=== PATIENT | female | born 1970 | race Two or more races ===

== ENCOUNTER 2024-09-25 16:53 | Emergency (ER) | payer OTHER, SELFPAY ==
[2024-09-25 17:07] VITALS: BP 149/89; PULSE 83; RESP 19; TEMP 36.6; O2SAT 100; BMI 27.6
--- NOTE | 2024-09-25 17:14 | XR_ITS ---
Examination: CT abdomen and pelvis without contrast. Coronal 3-D reconstructions. Sagittal 2-D reconstructions. Date and time of exam:September 25, 2024 1818 hours INDICATIONS: Abdominal pain constipation beginning 2 weeks ago CTDI: vol (mGy): 9.14. DLP: (mGycm): 462. Technique: Axial images of the abdomen have been obtained, 3 mm slice thickness Intravenous contrast material has not been administered. Low dose protocols were performed. One or more of the following dose reduction techniques were used; automated exposure control, adjustment of the mA and/or KV according to patient size, use of iterative reconstruction technique. Findings: No liver or splenic lesions. Absent gallbladder. Normal pancreas. No renal or ureteral calculi, no hydronephrosis Aorta normal size Large amounts of stool throughout the entire colon Inflammatory change involving the descending colon Appendix does not appear inflamed Marked enlargement of the body and fundus of the uterus Urinary bladder intact Moderate osteopenia IMPRESSION: Normal appendix Large amounts of stool throughout the entire colon Nonspecific colitis pattern involving the descending colon, differential would include ulcerative colitis, Crohn's disease, recommend colonoscopy follow-up Marked abnormal enlargement of the uterus, recommend pelvic sonography follow-up
--- NOTE | 2024-09-25 17:14 | PD.EDRME ---
Rapid Medical Screening Exam RME Arrival date/time: 09/25/24 16:53 53-year-old female presents to the emergency department today for complaints of nausea vomiting abdominal pain as well as constipation Chief Complaint: Abdominal Pain Vital signs: Vital Signs Temperature 97.8 F 09/25/24 17:07 Pulse Rate 83 09/25/24 17:07 Respiratory Rate 19 09/25/24 17:07 Blood Pressure 149/89 H 09/25/24 17:07 Pulse Oximetry (%) 100 09/25/24 17:07 Oxygen Delivery Method Room Air 09/25/24 17:07
[2024-09-25 17:50] LABS: Basophils # (Auto) 0.1 Thou/mm3 (0.0-0.2); Basophils % (Auto) 1 % (0-2.5); Eosinophils # (Auto) 0.0 Thou/mm3 (0.0-0.5); Eosinophils % (Auto) 0 % (0-10); Hematocrit 42.2 % (36.0-46.0); Hemoglobin 14.1 g/dL (12.0-16.0); Immature Granulocytes Auto 0.04 Thou/mm3 (0.00-0.00); Lymphocytes # (Auto) 1.1 Thou/mm3 (1.0-4.8); Lymphocytes % (Auto) 7 % (10-50); Mean Corpuscular HGB Conc 33.4 g/dl (31.0-37.0); Mean Corpuscular Hemoglobin 29.6 pg (25.0-35.0); Mean Corpuscular Volume 89 fL (80-100); Monocytes # (Auto) 1.1 Thou/mm3 (0.0-0.8); Monocytes % (Auto) 7 % (0-12); Neutrophils # (Auto) 13.0 Thou/mm3 (1.8-7.7); Neutrophils % (Auto) 85 % (37-80); Nucleated Red Blood Cell # 0.00 Thou/mm3 (0.00-0.00); Nucleated Red Blood Cell % 0 /100 WBC (0); Platelet Count 313 Thou/mm3 (140-440); RDW Standard Deviation 41.6 fL (36.4-46.3); Red Blood Count 4.77 Miln/mm3 (4.00-5.20); White Blood Count 15.3 Thou/mm3 (3.6-11.0)
[2024-09-25] MEDS: ONDANSETRON ODT 4 MG TABRAP PO (18:09)
[2024-09-25 18:31] LABS: Alanine Aminotransferase 12 U/L (10-49); Albumin, Serum 4.4 gm/dL (3.5-5.0); Albumin/Globulin Ratio 1.5 (1.2-2.2); Alkaline Phosphatase 69 U/L (46-116); Anion Gap 9 (7-16); Aspartate Amino Transferase 18 U/L (0-34); BUN/Creatinine Ratio 14 Ratio (12-20); Bilirubin,Total 0.3 mg/dL (0.3-1.2); Blood Urea Nitrogen 11 mg/dL (9-23); Calcium 9.5 mg/dL (8.3-10.6); Calcium (Corrected) 9.5 mg/dL (8.5-10.1); Carbon Dioxide 27.8 mMol/L (20.0-31.0); Chloride 99 mMol/L (98-107); Creatinine (Component) 0.8 mg/dL (0.6-1.3); Estimated Creatinine Clearance 84.5 mL/min (>60); Globulin 2.9 gm/dL (2.3-3.5); Glucose 104 mg/dL (74-106); Lipase 36 U/L (12-53); Osmolality,Calculated 271 (275-295); Potassium 4.2 mMol/L (3.4-5.1); Sodium 136 mMol/L (136-145); Total Protein 7.3 gm/dL (5.7-8.2); eGFR > 60 See Note
[2024-09-25 19:16] VITALS: BP 143/85; PULSE 78; RESP 18; TEMP 36.8; O2SAT 98
[2024-09-25 19:22] LABS: Collection Type, Urine Clean Catch
[2024-09-25 19:27] LABS: HCG Qualitative,Urine Negative
[2024-09-25 19:29] LABS: Amorphous Crystals,Urine Present (Absent); Bilirubin,Urine Negative (Negative); Blood,Urine 1+ (Negative); Clarity,Urine Turbid (Clear/Hazy); Color,Urine Yellow (Lt Yel-Yel); Culture Indicated,Urine Not Indicated; Glucose, Urine Negative (Negative); Ketones,Urine 2+ (Negative); Leukocyte Esterase,Urine Positive (Negative); Nitrite,Urine Negative (Negative); PH,Urine 5.5 (5.0-7.0); Protein,Urine Negative (Neg - Trace); RBC,Urine 7 /hpf (0-3); Specific Gravity,Urine 1.028 (1.001-1.035); Squamous Epithelial Cell,Urine 5 /hpf (0-5); Urobilinogen,Urine 3.0 mg/dL (0.0-1.0); WBC,Urine 3 /hpf (0-5)
--- NOTE | 2024-09-25 20:06 | EDNOTE_ITS ---
ED Abdominal Pain RME/HPI General Chief Complaint: Abdominal Pain Stated complaint: STRONG ABD PAIN Time seen by provider: 09/25/24 18:23 Arrival date/time: 09/25/24 16:53 RME / HPI RME / HPI narrative: 53-year-old female presents to the emergency department today for complaints of nausea vomiting abdominal pain as well as constipation. Onset of symptoms since early this morning. Severity of symptoms moderate. Patient denies any dysuria. Denies any fever. Denies any other complaints no medications taken prior to arrival. Related Data Previous Rx's ?Medication ?Instructions ?Recorded aluminum-mag hydroxide-simethicone 10 ml PO TID PRN in digestion #300 09/25/24 400 mg-400 mg-40 mg/5 mL oral susp mL (Maalox Maximum Strength) polyethylene glycol 3350 17 4 g PO QDAY #119 grams 04/20 gram/dose oral powder (Miralax) Allergies Allergy/AdvReac Type Severity Reaction Status Date / Time pineapple Allergy Verified 09/25/24 16:56 tree nut Allergy Verified 09/25/24 16:56 Review of Systems Review of Systems Narrative Review of Systems: Review of system reviewed and within normal limits except mentioned in HPI ED Exam Narrative Physical exam: VITAL SIGNS: Reviewed. GENERAL APPEARANCE: Alert and interactive, follows commands, no acute distress, HEAD AND FACE: Non-traumatic. ENT: PERRL, pink conjunctivitis, eyelid no trauma, Mucous membrane moist. NECK: Supple, nontender, no nuchal rigidity. CHEST: No tenderness, no crepitus, no paradoxical movement, no retractions. LUNGS: Clear, well ventilated, symmetric, no rales, no wheezing, no ronchi, no stridor, good breath sounds bilaterally. HEART: Regular rate, regular rhythm, no murmur, no gallops. ABDOMEN: Soft, positive bowel sounds, nondistended, no guarding, lower abdominal tenderness, no rebound, no masses, RECTAL: Deferred. GENITAL: Deferred. NEUROLOGICAL: Gross motor function intact sensory function intact, Appropriate for age. MUSCULOSKELETAL: low back nontender, full range of motion. EXTREMITIES: Nontender, full range of motion. SKIN: Color pink, dry, no rash, no lacerations, no abrasions, no contusions. LYMPHATICS: Deferred. Course Quality Measures none Orders Category Date Time Status EKG (ED ONLY) *Do not use* NOW Care 09/25/24 21:35 Completed Fleet [Enema Administration] ONCE Care 09/25/24 19:[address] abdomen pelvis wo con Stat Exams 09/25/24 17:14 Completed EKG (ED Only) Stat Exams 09/25/24 21:35 Draft CBC Stat Lab 09/25/24 17:33 Completed Comprehensive Metabolic Panel Stat Lab 09/25/24 17:33 Completed HCG Qualitative,Urine Stat Lab 09/25/24 19:10 Completed Lipase Stat Lab 09/25/24 17:33 Completed UA, C/S IF [Urinalysis, C/S if Indicated] Stat Lab 09/25/24 19:10 Completed Magnesium Citrate Liqd [Citrate of Magnesia Liqd] Med 09/25/24 19:59 Discontinued 300 ml PO X1 ONE Morphine Inj Med 09/25/24 19:59 Discontinued 5 mg IM X1 ONE Morphine Inj Med 09/25/24 20:05 Discontinued 5 mg IVP X1 ONE Ondansetron Inj [Zofran Inj] Med 09/25/24 20:05 Discontinued 4 mg IVP X1 ONE Ondansetron Odt [Zofran Odt] Med 09/25/24 17:14 Discontinued 4 mg PO X1 ONE Ringers Lactated 1000 ml [Lactated Ringers] 1,000 ml Med 09/25/24 20:05 Discontinued IV 999 mls/hr Ringers Lactated 1000 ml [Lactated Ringers] 1,000 ml Med 09/25/24 21:44 Active IV 999 mls/hr mg Hyd/Al Hyd/Dariusz Susp [Maalox Susp] Med 09/25/24 21:35 Discontinued 30 ml PO X1 ONE Vital Signs Vital signs: Vital Signs Temperature 97.8 F 09/25/24 17:07 Pulse Rate 83 09/25/24 17:07 Respiratory Rate 19 09/25/24 17:07 Blood Pressure 149/89 H 09/25/24 17:07 Pulse Oximetry (%) 100 09/25/24 17:07 Oxygen Delivery Method Room Air 09/25/24 17:07 Abdominal Pain MDM MDM Narrative MDM Narrative:: 53-year-old female presents to the emergency department today for complaints of nausea vomiting abdominal pain as well as constipation. Onset of symptoms since early this morning. Severity of symptoms moderate. Patient denies any dysuria. Denies any fever. Denies any other complaints no medications taken prior to arrival. Patient's CBC showed leukocytosis 15.3. CMP unremarkable urinalysis no sign of UTI patient is not EKG showed sinus bradycardia, ventricular rate of 56 bpm, no ST segment elevation or depression noted. CT scan of the abdomen pelvis showed Normal appendix Large amounts of stool throughout the entire colon Nonspecific colitis pattern involving the descending colon, differential would include ulcerative colitis, Crohn's disease, recommend colonoscopy follow-up Marked abnormal enlargement of the uterus, recommend pelvic sonography follow-up Patient received IV fluids, Fleet enema, mag citrate, with significant improvement of symptoms. Patient had a large bowel movement in the ED. However patient complained of epigastric pain. I gave Maalox with complete resolution of symptoms. Patient was advised to follow-up with PCP and for referral to GI specialist for outpatient colonoscopy. Patient agrees with the plan. Patient data External records reviewed:: None Clinical information provided by:: patient Social determinants that could affect healthcare access:: none Patient has the following chronic illnesses:: None How is presenting disease/condition affected by chronic disease/condition?: no chronic disease Evaluation data The following diagnostics were reviewed and interpreted by me:: lab results, radiology exam(s) and EKG tracing(s) Lab and/or radiology exams considered but not ordered:: None Interpretation Summary: See results MDM Medications / Prescriptions Medications or Prescriptions considered but not ordered:: None Medication administrations:: Medication Administration History Lactated Ringer's (Lactated Ringers) 1,000 mls @ 999 mls/hr IV .Q1H1M ONE Stop: 09/25/24 22:44 Last Admin: 09/25/24 22:01 Dose: 999 mls/hr Documented By: DT Discontinued Medications Al Hydrox/Mg Hydrox/Simethicone (Mg Hyd/Al Hyd/Dariusz (Maalox Reg) Susp 30 Ml Udc) 30 ml PO X1 ONE Stop: 09/25/24 21:36 Last Admin: 09/25/24 21:59 Dose: 30 ml Documented By: DT Lactated Ringer's (Lactated Ringers) 1,000 mls @ 999 mls/hr IV .Q1H1M ONE Stop: 09/25/24 21:05 Last Infusion: 09/25/24 21:23 Dose: Infused Documented By: Admin: 09/25/24 20:20 Dose: 999 mls/hr Documented By: DT Magnesium Citrate (Magnesium Citrate 300 Ml Btl) 300 ml PO X1 ONE Stop: 09/25/24 20:00 Last Admin: 09/25/24 20:48 Dose: 300 ml Documented By: EF Morphine Sulfate (Morphine Sulf Inj 10 Mg/Ml Vial) 5 mg IM X1 ONE Stop: 09/25/24 20:00 Last Admin: 09/25/24 20:51 Dose: Not Given Documented By: DT Non-Admin Reason: Cancelled by Provider Morphine Sulfate (Morphine Sulf Inj 10 Mg/Ml Vial) 5 mg IVP X1 ONE Stop: 09/25/24 20:06 Last Admin: 09/25/24 20:21 Dose: 5 mg Documented By: DT Ondansetron HCl (Ondansetron Odt 4 Mg Tabrap) 4 mg PO X1 ONE; Protocol Stop: 09/25/24 17:15 Last Admin: 09/25/24 18:09 Dose: 4 mg Documented By: SM Ondansetron HCl (Ondansetron Inj 2 Mg/Ml Inj 2 Ml) 4 mg IVP X1 ONE; Protocol Stop: 09/25/24 20:06 Last Admin: 09/25/24 20:21 Dose: 4 mg Documented By: DT IV fluids, Maalox magnesium citrate morphine Zofran Consultations Consultation(s) initiated? (list below): No Diagnosis Differential diagnosis abdominal pain: abdominal pain, constipation, gastroenteritis, pancreatitis and other (Irritable bowel disease) Most likely diagnosis given after review of the tests above:: Abdominal pain, constipation Admission Indicated Admission indicated?: not indicated Explain why admission is indicated or not indicated:: Stable Admission Request Was there a request for admission?: No Disposition Plan Disposition Plan: Discharge Discharge Attestation Discharge Attestation: The patient and all family members were given an opportunity to ask questions and understood the discharge instructions. Discharge instructions specifically effects, indications for sooner follow up or return to the emergency department, and the expected course of current diagnosis. Patient condition: Stable Discharge Plan Plan Patient Disposition: HOME (Self Care) Discharge Disposition comment: stable Prescriptions/Referrals Prescriptions/Med Rec: New polyethylene glycol 3350 [Miralax] 17 gram/dose powder 4 g PO QDAY Qty: 119 0RF alum-mag hydroxide-simeth [Maalox Maximum Strength] 400-400-40 mg/5 mL suspension 10 ml PO TID PRN (Reason: indigestion) Qty: 300 0RF Referrals: No Primary/Family,Physician [Primary Care Provider] - In 1 week Problem List Clinical Impression: Abdominal pain, Constipation Patient/Caregiver Discharge Instructions Education Materials: ED Constipation (Adult) Additional Instructions: Thank you for the opportunity for serving you today. You are stable for discharged . You are advised to: Follow-up with your PCP in 1 to 2 days and asked for referral to GI specialist to rule out IBD/irritable bowel disease Return to ED for worsening of symptoms Increase oral fluids Take medication as prescribed Print Language: [place] Stand Alone Forms: Nini Award Info., Patient Portal Info Letter PA/CHRONIC MANAGER Supervising Physician PA/AMARILYS Supervising Physician: MD Izabella
[2024-09-25] MEDS: RINGERS LACTATED 1000 ML 1,000 ML 999 ML IV ×2 (20:20→22:01)
[2024-09-25] MEDS: MORPHINE SULF INJ 10 MG/ML VIAL 5 MG IVP (20:21)
[2024-09-25] MEDS: ONDANSETRON INJ 2 MG/ML INJ 2 ML 4 MG IVP (20:21)
[2024-09-25] MEDS: MAGNESIUM CITRATE 300 ML BTL PO (20:48)
[2024-09-25 21:00] VITALS: BP 135/85; PULSE 85; RESP 14; TEMP 37; O2SAT 99
--- NOTE | 2024-09-25 21:35 | EKG_ITS ---
[facility] Test Date: 2024-09-25 Pat Name: GERARD LINDSAY Department: Room: - Gender: Female [employer]or Services Coordinator: : 1970 Requested By: Rickey Greenfield Order Number: [id number] Reading MD: Rickey Greenfield Measurements Intervals [place] Rate: 56 P: 55 MT: 155 QRS: 13 QRSD: 92 T: 30 QT: 425 QTc: 412 Interpretive Statements SINUS BRADYCARDIA NONSPECIFIC T-WAVE ABNORMALITY No previous ECG available for comparison /[id number]/[id number]
[2024-09-25] MEDS: MG HYD/AL HYD/SIME (Maalox Reg) SUSP 30 ML UDC PO (21:59)
[2024-09-25 22:51] VITALS: BP 136/87; PULSE 85; RESP 14; TEMP 37; O2SAT 99
== END 2024-09-25 22:52 | disposition home or self-care (01) ==
PROVIDERS: Nurse Practitioner Primary Care; Emergency Provider Emergency Medicine
DX: K59.00 Constipation, unspecified (principal); N85.2 Hypertrophy of uterus; D72.829 Elevated white blood cell count, unspecified; R00.1 Bradycardia, unspecified
CPT/HCPCS: 36415; 74176; 80053; 81001; 81025; 83690; 85025; 93005; 96361; 96374; 96375; 99283; J2270; J2405; J7120; Q0162; A9270